=== PATIENT | male | born 1955 | race Caucasian/White ===

== ENCOUNTER → 2017-03-18 | Outpatient (CLI) | payer MEDICAID ==
[~2017-03-18] MED LIST: OMNIPAQUE 350 MG/ML, 100ML BOTTLE ONE
== END | disposition home or self-care (01) ==
LOC: CFH 08:18
PROVIDERS: ATTEND Internal Medicine Geriatric Medicine
DX: K74.60 Unspecified cirrhosis of liver (principal); R16.1 Splenomegaly, not elsewhere classified; K80.20 Calculus of gallbladder without cholecystitis without obstruction; K42.9 Umbilical hernia without obstruction or gangrene; K43.9 Ventral hernia without obstruction or gangrene
CPT/HCPCS: 74170; 82565; Q9967

== ENCOUNTER → 2018-07-01 | Outpatient (CLI) | payer MEDICAID ==
[~2018-07-01] MED LIST changes: +CALC1CAP8 PO; +CEFAZOLIN 1,000 MG ONE; +CINN500C2 PO; +MAGN400T7 PO; +MULT-224 PO; -OMNIPAQUE 350 MG/ML, 100ML BOTTLE ONE; +SODIUM CHLORIDE 0.9% PF 10ML ONE; +TURM1POW PO
[2018-07-01 11:33] LABS: MICROSCOPIC NOT IND
[2018-07-01 11:36] LABS: BASOPHILS # (AUTO) 0.03 x10^3/uL (0-0.1); BASOPHILS % (AUTO) 1 % (0-1); EOSINOPHILS # (AUTO) 0.17 x10^3/uL (0-0.4); EOSINOPHILS % (AUTO) 3 % (1-7); LYMPHOCYTES # (AUTO) 1.81 x10^3/uL (1-3.4); LYMPHOCYTES % (AUTO) 28 % (22-44); MD NO; MEAN CORPUSCULAR HEMOGLOBIN 30.8 pg (27.5-34.5); MEAN CORPUSCULAR HGB CONC 33.6 g/dL (33.2-36.2); MEAN CORPUSCULAR VOLUME 91.6 fL (81-97); MEAN PLATELET VOLUME 8.8 fL (7.4-10.4); MONOCYTES # (AUTO) 0.43 x10^3/uL (0.2-0.8); MONOCYTES % (AUTO) 7 % (2-9); NEUTROPHILS # (AUTO) 4.02 x10^3/uL (1.8-6.8); NEUTROPHILS % (AUTO) 62 % (42-75); PLATELET COUNT 143 x10^3/uL (130-400); RED BLOOD COUNT 4.78 x10^6/uL (4.38-5.82); RED CELL DISTRIBUTION WIDTH 13.4 % (9.4-14.8)
[2018-07-01 11:38] LABS: ANION GAP 4 mmol/L (5-15); CALCIUM 8.2 mg/dL (8.5-10.1); CHLORIDE 110 mmol/L (98-107); CREATININE 0.78 mg/dL (0.7-1.3)
[2018-07-01 11:40] LABS: INTERNATIONAL NORMALIZED RATIO 1.08 (0.93-1.1); PROTHROMBIN TIME 11.2 Seconds (9.6-11.5)
[2018-07-01 12:26] LABS: HEMOGLOBIN A1C 4.9 % (4.2-6.3)
== END | disposition home or self-care (01) ==
LOC: STAR 10:09
PROVIDERS: ATTEND Student in an Organized Health Care Education/Training Program
DX: Z01.818 Encounter for other preprocedural examination (principal); R00.1 Bradycardia, unspecified; N40.1 Benign prostatic hyperplasia with lower urinary tract symptoms; R33.8 Other retention of urine; Z87.891 Personal history of nicotine dependence
CPT/HCPCS: 36415; 80048; 81003; 83036; 85025; 85610; 85730; 87086; 93005; J0690

== ENCOUNTER 2018-07-13 10:06 | Day surgery (SDC) | payer MEDICAID ==
[~2018-07-13] VITALS: Ht 182.9 cm; Wt 106.8 kg
[~2018-07-13 10:06] MED LIST changes: -CEFAZOLIN 1,000 MG ONE; -SODIUM CHLORIDE 0.9% PF 10ML ONE
[2018-07-13] MEDS ORDERED: LACTATED RINGERS 1,000 ML IV SCH (10:32)
[2018-07-13] MEDS ORDERED: TAMS0.4C2 PO (10:40)
[2018-07-13] MEDS ORDERED: FINA5TAB4 PO (10:40)
[2018-07-13 11:09] VITALS: BP 128/83
[2018-07-13] MEDS ORDERED: FENTANYL PF 250 MCG/5ML ONE (12:59)
[2018-07-13] MEDS ORDERED: MIDAZOLAM 1 MG/ML, 2ML ONE (12:59)
[2018-07-13] MEDS ORDERED: PROPOFOL 10 MG/ML, 20ML ONE (13:00)
[2018-07-13] MEDS ORDERED: NEOSTIGMINE 1 MG/ML, 10ML ONE (13:01)
[2018-07-13] MEDS ORDERED: ROCURONIUM 10MG/ML,5ML ONE (13:01)
[2018-07-13] MEDS ORDERED: GLYCOPYRROLATE 0.4 MG/2 ML, 2ML ONE (13:01)
[2018-07-13] MEDS ORDERED: WATER-INJECTION,STERILE 10 ML IV ONE (13:03)
[2018-07-13] MEDS ORDERED: CEFAZOLIN 1,000 MG ONE ×2 (13:03)
[2018-07-13] MEDS ORDERED: PHENYLEPHRINE 10 MG/ML ONE (13:26)
[2018-07-13] MEDS ORDERED: LABETALOL 5MG/ML, 20ML IV PRN (13:30)
[2018-07-13] MEDS ORDERED: PROMETHAZINE 25 MG SUPP PR PRN (13:30)
[2018-07-13] MEDS ORDERED: PROMETHAZINE 25 MG/ML, 1ML IV PRN (13:30)
[2018-07-13] MEDS ORDERED: PROMETHAZINE 25 MG/ML, 1ML IM PRN ×2 (13:30)
[2018-07-13] MEDS ORDERED: hydrALAzine 20 MG/ML, 1ML IV PRN (13:30)
[2018-07-13] MEDS ORDERED: ONDANSETRON 2MG/ML, 2ML IV PRN (13:30)
[2018-07-13] MEDS ORDERED: ACETAMINOPHEN 325 MG TABLET PO PRN (13:30)
[2018-07-13] MEDS ORDERED: OXYcodone 5 MG/5 ML ORAL.SOL UDC PO PRN (13:30)
[2018-07-13] MEDS ORDERED: PROMETHAZINE 12.5 MG SUPP PR PRN (13:30)
[2018-07-13] MEDS ORDERED: ONDANSETRON ODT 8 MG PO PRN (13:30)
[2018-07-13] MEDS ORDERED: HYDROmorphone 1 MG/ML, 1ML IV PRN (13:30)
[2018-07-13] MEDS ORDERED: MORPHINE SULFATE 4 MG/ML, 1ML IVPush PRN (13:30)
[2018-07-13] MEDS ORDERED: MEPERIDINE/PF 25MG/0.5ML IVPush PRN (13:30)
[2018-07-13] MEDS ORDERED: ACETAMINOPHEN 650 MG/20.3 ML UDC ONE (15:41)
[2018-07-13] MEDS ORDERED: OXYcodone 5 MG/5 ML ORAL.SOL UDC ONE (15:42)
[2018-07-13] MEDS ORDERED: FENTANYL PF 100 MCG/2ML ONE (15:44)
[2018-07-13] MEDS: FENTANYL PF 100 MCG/2ML IV PRN ×2 (15:45→15:51)
[2018-07-13] MEDS ORDERED: PHENAZOPYRIDINE 200 MG TABLET ONE (16:07)
[2018-07-13] MEDS ORDERED: PHENAZOPYRIDINE 100 MG TABLET PO ONE (16:30)
== END 2018-07-13 18:30 | disposition home or self-care (01) ==
LOC: OUT 10:06
PROVIDERS: ATTEND Student in an Organized Health Care Education/Training Program
DX: N40.1 Benign prostatic hyperplasia with lower urinary tract symptoms (principal); Z72.89 Other problems related to lifestyle; Z98.890 Other specified postprocedural states
CPT/HCPCS: 52648; J0690; J2250; J2370; J2704; J2710; J3010; J7120

== ENCOUNTER 2019-08-12 08:44 | Outpatient (CLI) | payer MEDICARE ==
[~2019-08-12 08:44] MED LIST changes: +FINA5TAB4 PO; -MULT-224 PO; +MULT-642 PO; +TAMS0.4C2 PO
[2019-08-12] MEDS ORDERED: OMNIPAQUE 350 MG/ML, 100ML BOTTLE ONE (16:21)
== END 2019-08-12 23:59 | disposition home or self-care (01) ==
LOC: CFH 08:44
PROVIDERS: ATTEND Internal Medicine Geriatric Medicine
DX: K74.60 Unspecified cirrhosis of liver (principal); K85.10 Biliary acute pancreatitis without necrosis or infection; R16.1 Splenomegaly, not elsewhere classified; F10.11 Alcohol abuse, in remission
CPT/HCPCS: 74170; Q9967

== ENCOUNTER → 2020-03-23 | Outpatient (CLI) | payer MEDICARE ==
[~2020-03-23] MED LIST changes: -MAGN400T7 PO; +MAGN400T9 PO; +OMNIPAQUE 350 MG/ML, 100ML BOTTLE ONE
== END | disposition home or self-care (01) ==
LOC: CFH 07:55
PROVIDERS: ATTEND Internal Medicine Geriatric Medicine
DX: K76.0 Fatty (change of) liver, not elsewhere classified (principal); K80.20 Calculus of gallbladder without cholecystitis without obstruction; R16.2 Hepatomegaly with splenomegaly, not elsewhere classified; K76.6 Portal hypertension; I70.0 Atherosclerosis of aorta
CPT/HCPCS: 74170; Q9967

== ENCOUNTER → 2021-04-05 | Outpatient (CLI) | payer MEDICARE ==
[~2021-04-05] MED LIST changes: -OMNIPAQUE 350 MG/ML, 100ML BOTTLE ONE
== END | disposition home or self-care (01) ==
LOC: CVU 06:41
PROVIDERS: ATTEND Internal Medicine Cardiovascular Disease
DX: I34.0 Nonrheumatic mitral (valve) insufficiency (principal); I49.3 Ventricular premature depolarization; I10 Essential (primary) hypertension
CPT/HCPCS: 78452; 93017; 93306; 93356; A9502

== ENCOUNTER → 2021-04-08 | Outpatient (CLI) | payer MEDICARE | END | disposition home or self-care (01) | LOC: RAD 06:56 | PROVIDERS: ATTEND Internal Medicine Geriatric Medicine | DX: K80.20 Calculus of gallbladder without cholecystitis without obstruction (principal); R16.1 Splenomegaly, not elsewhere classified; K70.30 Alcoholic cirrhosis of liver without ascites | CPT/HCPCS: 76700 ==

== ENCOUNTER 2021-06-25 10:53 | Outpatient (CLI) | payer MEDICARE | END 2021-06-25 23:59 | disposition home or self-care (01) | LOC: LAB 10:53 | PROVIDERS: ATTEND Internal Medicine Cardiovascular Disease | DX: I10 Essential (primary) hypertension (principal); R94.31 Abnormal electrocardiogram [ECG] [EKG] ==